=== PATIENT | female | born 1980 | race Native Hawaiian/Other Pacific Islander ===

== ENCOUNTER 2017-05-22 11:09 | Outpatient (CLI) | payer OTHER | END 2017-05-22 12:10 | disposition home or self-care (01) | LOC: LABW 11:09 | DX: N63 Unspecified lump in breast (principal); N64.52 Nipple discharge | CPT/HCPCS: 81025 ==

== ENCOUNTER 2018-10-10 14:00 | Outpatient (CLI) | payer OTHER ==
[~2018-10-10] VITALS: Ht 154.9 cm; Wt 47.6 kg
[2018-10-10 14:10] VITALS: BP 118/58; TEMP 98.1
== END 2018-10-10 15:20 | disposition home or self-care (01) ==
LOC: INF 14:00
DX: K04.7 Periapical abscess without sinus (principal)
CPT/HCPCS: 96372; J0696

== ENCOUNTER 2018-10-11 13:07 | Outpatient (CLI) | payer OTHER ==
[~2018-10-11] VITALS: Ht 154.9 cm; Wt 47.6 kg
[2018-10-11 14:45] VITALS: BP 118/64; TEMP 98.1
== END 2018-10-11 21:39 | disposition home or self-care (01) ==
LOC: INF 13:07
DX: K04.7 Periapical abscess without sinus (principal)
CPT/HCPCS: 96372; J0696